=== PATIENT | male | born 1970 | race Caucasian/White ===

== ENCOUNTER 2018-09-20 08:58 | Day surgery (SDC) | payer OTHER ==
[~2018-09-20] VITALS: Ht 170.2 cm; Wt 116.3 kg
[~2018-09-20 08:58] MED LIST: ALBU90OI; ASPI325; HYDACE10B PO; ISOMON30 PO; PARO20; PAXIL 20 MG; PROM25 PO
--- NOTE | 2018-09-20 11:40 | NUR ---
09/20/18 1140 Jeri Treadwell LATE ENTRY PT AND UPDATED ON DELAY, PT WIFES STATES UNDERSTANDING, AND SAYS "IM OK FOR NOW." PT GIVEN GIFT CARD FOR DELAY. CONTINUOUS UPDATES, PT HAS CALL LIGHT IN REACH, BED IN LOWEST POSITION, AND TALKING WITH AT BEDSIDE.
== END 2018-09-20 14:20 | disposition home or self-care (01) ==
LOC: ORSCSDS 08:58
PROVIDERS: Orthopaedic Surgery
PROC: 0LQ24ZZ Repair Left Shoulder Tendon, Percutaneous Endoscopic Approach (ICD-10-PCS; principal; 2018-09-20 10:35)
PROC: 0LS24ZZ Reposition Left Shoulder Tendon, Percutaneous Endoscopic Approach (ICD-10-PCS; principal; 2018-09-20 10:35)
PROC: 0RNK4ZZ Release Left Shoulder Joint, Percutaneous Endoscopic Approach (ICD-10-PCS; principal; 2018-09-20 10:35)
DX: M75.112 Incomplete rotator cuff tear or rupture of left shoulder, not specified as traumatic (principal); M75.22 Bicipital tendinitis, left shoulder; M75.52 Bursitis of left shoulder; E66.01 Morbid (severe) obesity due to excess calories; Z68.41 Body mass index [BMI] 40.0-44.9, adult; F41.8 Other specified anxiety disorders; Z79.899 Other long term (current) drug therapy
CPT/HCPCS: A9270-GY; C1713; J0171; J1100; J2250; J2370; J2405; J2704; J2710; J3010; J7120

== ENCOUNTER 2021-04-18 08:46 | Day surgery (SDC) | payer OTHER ==
[~2021-04-18] VITALS: Ht 172.7 cm; Wt 97.8 kg
[~2021-04-18 08:46] MED LIST changes: +BUPRENORPHIN-N1 EAC1 SL; +CENTRUM SILVER1 EAC2 PO; +CYCL10 PO; +Clomiphene Citr50 MG PO; +MOVANTIK PO; +NICO21TP TOP; +OXYC10TA19 PO; -PARO20; +PARO20 PO; +Robaxin750 MG PO; +SILD50TA PO; +Vitamin B Comple1 EA PO
--- NOTE | 2021-04-18 09:15 | NUR ---
History, Chart, Medications and Allergies reviewed before start of procedure. Patient states colon prep results clear. Patient States Post-Procedure ride home has been arranged.
--- NOTE | 2021-04-18 10:06 | NUR ---
04/18/21 1006 Prateek Rangel See Anesthesia record DR WOODY. 3-LEAD EKG REVIEWED WITH PHYSICIAN PRIOR TO START OF PROCEDURE. Patient to ENDO 1. History, Chart, Medications and Allergies reviewed before start of procedure. MONITOR INTACT WITH CONTINUOUS PULSE OXIMETRY AND INTERMITTENT BP. O2 VIA N/C INTACT THROUGHOUT SEDATION/PROCEDURE.
--- NOTE | 2021-04-18 10:33 | NUR ---
Discharge instructions reviewed with patient. Patient verbalizes understanding. Copy given to patient to take home.
--- NOTE | 2021-04-18 10:49 | NUR ---
Discharged via wheelchair to private car for ride home.
== END 2021-04-18 10:50 | disposition home or self-care (01) ==
LOC: ORSCMMR 08:46 → ORD 10:30 → ORSCMMR 10:50
PROVIDERS: Surgery
PROC: 0DBN8ZX Excision of Sigmoid Colon, Via Natural or Artificial Opening Endoscopic, Diagnostic (ICD-10-PCS; principal; 2021-04-18 10:30)
PROC: 0DBP8ZX Excision of Rectum, Via Natural or Artificial Opening Endoscopic, Diagnostic (ICD-10-PCS; principal; 2021-04-18 10:30)
PROC: 0DBL8ZX Excision of Transverse Colon, Via Natural or Artificial Opening Endoscopic, Diagnostic (ICD-10-PCS; principal; 2021-04-18 10:30)
DX: Z12.11 Encounter for screening for malignant neoplasm of colon (principal); D12.8 Benign neoplasm of rectum; D12.5 Benign neoplasm of sigmoid colon; D12.3 Benign neoplasm of transverse colon; G47.33 Obstructive sleep apnea (adult) (pediatric); I10 Essential (primary) hypertension; E78.5 Hyperlipidemia, unspecified; Z79.899 Other long term (current) drug therapy; F41.8 Other specified anxiety disorders
CPT/HCPCS: 88305; J2704; J7120

== ENCOUNTER 2024-06-08 12:51 | Emergency (ER) | payer OTHER ==
[~2024-06-08] VITALS: Ht 170.2 cm; Wt 122.5 kg
[2024-06-08 13:29] VITALS: BP 179/94
[2024-06-08] MEDS ORDERED: Ketorolac Tromethamine 15mg Vial IM ONE (13:35)
== END 2024-06-08 15:00 | disposition home or self-care (01) ==
LOC: ER 12:51
DX: M25.511 Pain in right shoulder (principal); M54.89 Other dorsalgia; Z88.0 Allergy status to penicillin; Z79.899 Other long term (current) drug therapy; Z59.89 Other problems related to housing and economic circumstances; W19.XXXA Unspecified fall, initial encounter
CPT/HCPCS: 72100; 73030; 96372; 99283-25; J1885